=== PATIENT | female | born 1950 | race Caucasian/White ===

== ENCOUNTER 2018-02-13 12:18 | Emergency (ER) | payer MEDICARE ==
[~2018-02-13] VITALS: Ht 170.2 cm; Wt 63.6 kg
[2018-02-13 13:15] LABS: BASOPHILS % (AUTO) 0.3 % (0-1); EOSINOPHILS # (AUTO) 0.1 X10'3 (0-0.9); EOSINOPHILS % (AUTO) 1.5 % (0-6); HEMATOCRIT 24.8 % (35.0-45.0); HEMOGLOBIN 8.3 g/dl (12.0-16.0); LYMPHOCYTES # (AUTO) 1.8 X10'3 (1.1-4.8); LYMPHOCYTES % (AUTO) 37.2 % (21-51); MEAN CORPUSCULAR HEMOGLOBIN 31.8 PG (27.0-31.0); MEAN CORPUSCULAR HGB CONC 33.3 % (33.0-36.5); MEAN CORPUSCULAR VOLUME 95.5 FL (78-98); MEAN PLATELET VOLUME 6.9 FL (7.4-10.4); MONOCYTES # (AUTO) 0.7 X10'3 (0-0.9); NEUTROPHILS # (AUTO) 2.3 X10'3 (1.8-7.7); PLATELET COUNT 137 X10'3 (140-440); RED BLOOD COUNT 2.59 X10'6 (4.20-5.60); RED CELL DISTRIBUTION WIDTH 14.4 % (11.5-14.5); WHITE BLOOD COUNT 4.8 X10'3 (4.5-11.0)
[2018-02-13 13:29] LABS: ALANINE AMINOTRANSFERASE 33 U/L (12-78); ALBUMIN 3.3 G/DL (3.4-5.0); ALBUMIN/GLOBULIN RATIO 1.2 (1.1-1.5); ALKALINE PHOSPHATASE 70 IU/L (46-116); ANION GAP 9 (8-16); ASPARTATE AMINO TRANSFERASE 33 U/L (10-37); BILIRUBIN,TOTAL 0.4 MG/DL (0.1-1.0); BLOOD UREA NITROGEN 27 MG/DL (7-18); BUN/CREATININE RATIO 8.9 (6.6-38.0); CALCIUM 8.2 MG/DL (8.5-10.1); CHLORIDE 106 MMOL/L (99-107); CREATININE 3.05 MG/DL (0.40-0.90); GLUCOSE 98 MG/DL (70-104); SODIUM 140 MMOL/L (135-145); TOTAL CARBON DIOXIDE 25.4 MMOL/L (24-32); TOTAL PROTEIN 6.1 G/DL (6.4-8.2); eGFR 15 ML/MIN
[2018-02-13 13:32] LABS: TROPONIN I < 0.04 NG/ML (0.0-0.05)
[2018-02-13 18:39] VITALS: BP 124/72
[2018-02-13] MEDS ORDERED: acetaminophen 325mg tablet PO ONE (18:45)
[2018-02-13 18:55] VITALS: BP 112/66
[2018-02-13 19:55] VITALS: BP 112/68
[2018-02-13 20:56] VITALS: BP 127/71
== END 2018-02-13 21:28 | disposition home or self-care (01) ==
LOC: ER 12:18
DX: D64.9 Anemia, unspecified (principal); N19 Unspecified kidney failure; G89.29 Other chronic pain; Z98.890 Other specified postprocedural states; Z88.1 Allergy status to other antibiotic agents; Z88.6 Allergy status to analgesic agent; Z88.8 Allergy status to other drugs, medicaments and biological substances
CPT/HCPCS: 36415; 36430; 80053; 84484; 85025; 86885; 86900; 86901; 86920; 99285; P9016

== ENCOUNTER 2018-02-23 08:24 | Day surgery (SDC) | payer MEDICARE ==
[~2018-02-23] VITALS: Ht 170.2 cm; Wt 64.3 kg
[2018-02-23] VITALS (15 sets, daily range): BP systolic 104–146; BP diastolic 50–84
[2018-02-23] MEDS ORDERED: normal saline 1000ml 1,000 ML IV PRN (08:55)
[2018-02-23 09:16] LABS: BASOPHILS % (AUTO) 0.2 % (0-1); EOSINOPHILS # (AUTO) 0.1 X10'3 (0-0.9); EOSINOPHILS % (AUTO) 1.4 % (0-6); LYMPHOCYTES # (AUTO) 1.7 X10'3 (1.1-4.8); LYMPHOCYTES % (AUTO) 31.1 % (21-51); MEAN CORPUSCULAR HEMOGLOBIN 31.5 PG (27.0-31.0); MEAN CORPUSCULAR HGB CONC 33.2 % (33.0-36.5); MEAN CORPUSCULAR VOLUME 94.8 FL (78-98); MEAN PLATELET VOLUME 7.3 FL (7.4-10.4); MONOCYTES # (AUTO) 0.9 X10'3 (0-0.9); MONOCYTES % (AUTO) 16.1 % (2-12); NEUTROPHILS # (AUTO) 2.9 X10'3 (1.8-7.7); NEUTROPHILS % (AUTO) 51.2 % (42-75); PRE OP HEMATOCRIT 35.7 % (35.0-45.0); PRE OP HEMOGLOBIN 11.8 g/dL (12.0-16.0); PRE OP PLATELET COUNT 154 X10'3 (140-440); RED BLOOD COUNT 3.76 X10'6 (4.20-5.60); RED CELL DISTRIBUTION WIDTH 14.9 % (11.5-14.5)
[2018-02-23 09:25] LABS: ALBUMIN 4.1 G/DL (3.4-5.0); ANION GAP 13 (8-16); BLOOD UREA NITROGEN 30 MG/DL (7-18); CALCIUM 9.7 MG/DL (8.5-10.1); CHLORIDE 106 MMOL/L (99-107); CREATININE 3.76 MG/DL (0.40-0.90); GLUCOSE 100 MG/DL (70-104); POTASSIUM 3.9 MMOL/L (3.5-5.1); SODIUM 144 MMOL/L (135-145); TOTAL CARBON DIOXIDE 25.5 MMOL/L (24-32); eGFR 12 ML/MIN
[2018-02-23] MEDS ORDERED: PANT-47 PO (09:29)
[2018-02-23] MEDS ORDERED: LIDOcaine 1% (10mg/ml) 2ml vial ONE (10:38)
[2018-02-23] MEDS ORDERED: midazolam 2 mg/2 ml injection ONE ×2 (10:48→11:10)
[2018-02-23] MEDS ORDERED: fentaNYL/PF 50MCG/1 ML 2ML syringe ONE ×2 (10:48→11:10)
[2018-02-23] MEDS ORDERED: normal saline 1000ml 1,000 ML IV SCH (10:49)
[2018-02-23] MEDS ORDERED: midazolam 2 mg/2 ml injection IV PRN (10:50)
[2018-02-23] MEDS ORDERED: fentaNYL/PF 50MCG/1 ML 2ML syringe IV PRN (10:50)
== END 2018-02-23 13:55 | disposition home or self-care (01) ==
LOC: SSTAY O 08:24
PROVIDERS: ATTEND Radiology Diagnostic Radiology
DX: N18.4 Chronic kidney disease, stage 4 (severe) (principal); D64.9 Anemia, unspecified; Z88.2 Allergy status to sulfonamides; Z88.8 Allergy status to other drugs, medicaments and biological substances; Z96.659 Presence of unspecified artificial knee joint; Z98.890 Other specified postprocedural states
CPT/HCPCS: 36415; 50200; 77012; 80048; 85025; 99152; 99153; J2250; J3010; J3490; J7030

== ENCOUNTER 2019-04-13 14:36 | Emergency (ER) | payer MEDICARE ==
[~2019-04-13] VITALS: Ht 168.9 cm; Wt 68.2 kg
[~2019-04-13 14:36] MED LIST: PANT-47 PO
[2019-04-13 15:06] LABS: CLARITY,URINE CLEAR (Clear); COLOR,URINE STRAW (Yellow); GLUCOSE, URINE NEGATIVE (Neg); KETONES,URINE NEGATIVE (Neg); LEUKOCYTE ESTERASE ,URINE NEGATIVE (Neg); NITRITES, URINE NEGATIVE (Neg); OCCULT BLOOD,URINE SMALL (Neg); PH,URINE 5.5 (4.8-8.0); PROTEIN,URINE NEGATIVE (Neg); UROBILINOGEN,URINE 0.2 E.U/dL (0.2-1.0)
[2019-04-13 15:13] LABS: UA COLLECTION TYPE CLN CATCH MIDSTREAM
[2019-04-13 15:15] LABS: BACTERIA,URINE FEW /HPF (Neg); RBC,URINE 0-2 /HPF (0-2); SQUAMOUS EPITHELIAL CELL,UR FEW /LPF (FEW); WBC,URINE 0-4 /HPF (0-4)
[2019-04-13 16:24] LABS: PARTIAL THROMBOPLASTIN TIME 27 SECONDS (22-32)
[2019-04-13 16:27] LABS: ALANINE AMINOTRANSFERASE 24 U/L (12-78); ALBUMIN 3.9 G/DL (3.4-5.0); ALBUMIN/GLOBULIN RATIO 1.7 (1.1-1.5); ALKALINE PHOSPHATASE 110 IU/L (46-116); ANION GAP 6 (8-16); ASPARTATE AMINO TRANSFERASE 20 U/L (10-37); BILIRUBIN,TOTAL 0.2 MG/DL (0.1-1.0); BLOOD UREA NITROGEN 26 MG/DL (7-18); BUN/CREATININE RATIO 14.9 (6.6-38.0); CALCIUM 8.3 MG/DL (8.5-10.1); CHLORIDE 104 MMOL/L (99-107); CREATININE 1.75 MG/DL (0.40-0.90); GLUCOSE 99 MG/DL (70-104); HEMATOCRIT 31.9 % (35.0-45.0); LYMPHOCYTES # (AUTO) 0.6 X10'3 (1.1-4.8); MAGNESIUM 2.1 MG/DL (1.5-2.4); MEAN CORPUSCULAR HEMOGLOBIN 36.6 PG (27.0-31.0); MEAN CORPUSCULAR HGB CONC 34.4 g/dL (33.0-36.5); MEAN CORPUSCULAR VOLUME 106.4 FL (78-98); MONOCYTES # (AUTO) 0.5 X10'3 (0-0.9); MONOCYTES % (AUTO) 9.6 % (2-12); NEUTROPHILS # (AUTO) 3.6 X10'3 (1.8-7.7); NEUTROPHILS % (AUTO) 76.4 % (42-75); PLATELET COUNT 158 X10'3 (140-440); POTASSIUM 4.4 MMOL/L (3.5-5.1); RED CELL DISTRIBUTION WIDTH 12.9 % (11.5-14.5); SODIUM 136 MMOL/L (135-145); TOTAL CARBON DIOXIDE 26.3 MMOL/L (24-32); TOTAL PROTEIN 6.2 G/DL (6.4-8.2); WHITE BLOOD COUNT 4.8 X10'3 (4.5-11.0); eGFR 29 ML/MIN
[2019-04-13 16:50] VITALS: BP 153/92
== END 2019-04-13 16:53 | disposition home or self-care (01) ==
LOC: ER 14:36
DX: R30.0 Dysuria (principal); G89.29 Other chronic pain; N18.9 Chronic kidney disease, unspecified; Z98.890 Other specified postprocedural states; Z88.1 Allergy status to other antibiotic agents; Z88.8 Allergy status to other drugs, medicaments and biological substances; Z88.6 Allergy status to analgesic agent; Z87.440 Personal history of urinary (tract) infections; Z92.21 Personal history of antineoplastic chemotherapy
CPT/HCPCS: 36415; 71045; 80053; 81001; 83605; 83735; 84145; 85025; 85610; 85730; 87040; 99284

== ENCOUNTER 2020-03-21 11:42 | Emergency (ER) | payer MEDICARE ==
[~2020-03-21] VITALS: Ht 170.2 cm; Wt 65.9 kg
--- NOTE | 2020-03-21 12:28 | NUR ---
Patient given call light and explained to her that until her results for the COVID come back we will keep the door closed. Pt verbalized understanding and has call light in reach.
[2020-03-21 12:43] LABS: BASOPHILS % (AUTO) 0.3 % (0-1); EOSINOPHILS # (AUTO) 0.2 X10'3 (0-0.9); EOSINOPHILS % (AUTO) 1.8 % (0-6); HEMATOCRIT 38.5 % (35.0-45.0); LYMPHOCYTES % (AUTO) 11.3 % (21-51); MEAN CORPUSCULAR HGB CONC 33.7 g/dL (33.0-36.5); MEAN CORPUSCULAR VOLUME 103.8 FL (78-98); MEAN PLATELET VOLUME 8.5 FL (7.4-10.4); MONOCYTES # (AUTO) 0.6 X10'3 (0-0.9); MONOCYTES % (AUTO) 6.8 % (2-12); NEUTROPHILS # (AUTO) 7.1 X10'3 (1.8-7.7); NEUTROPHILS % (AUTO) 79.8 % (42-75); PLATELET COUNT 209 X10'3 (140-440); RED BLOOD COUNT 3.71 X10'6 (4.20-5.60); RED CELL DISTRIBUTION WIDTH 14.2 % (11.5-14.5); WHITE BLOOD COUNT 8.9 X10'3 (4.5-11.0)
[2020-03-21 12:57] LABS: ALANINE AMINOTRANSFERASE 21 U/L (12-78); ALBUMIN 4.1 G/DL (3.4-5.0); ALBUMIN/GLOBULIN RATIO 1.5 (1.1-1.5); ALKALINE PHOSPHATASE 109 IU/L (46-116); ANION GAP 11 (8-16); ASPARTATE AMINO TRANSFERASE 17 U/L (10-37); BILIRUBIN,TOTAL 0.3 MG/DL (0.1-1.0); BLOOD UREA NITROGEN 22 MG/DL (7-18); BUN/CREATININE RATIO 13.5 (6.6-38.0); CALCIUM 8.9 MG/DL (8.5-10.1); CHLORIDE 105 MMOL/L (99-107); CREATININE 1.63 MG/DL (0.40-0.90); GLUCOSE 102 MG/DL (70-104); POTASSIUM 4.8 MMOL/L (3.5-5.1); SODIUM 139 MMOL/L (135-145); TOTAL CARBON DIOXIDE 23.1 MMOL/L (24-32); TOTAL PROTEIN 6.9 G/DL (6.4-8.2); eGFR 31 ML/MIN
[2020-03-21 13:19] VITALS: BP 138/78
[2020-03-21] MEDS ORDERED: ALBU6.7H9 INH (13:38)
[2020-03-21] MEDS ORDERED: AMOX-422 PO (13:38)
== END 2020-03-21 14:31 | disposition home or self-care (01) ==
LOC: ER 11:42
DX: J40 Bronchitis, not specified as acute or chronic (principal); Z20.828 Contact with and (suspected) exposure to other viral communicable diseases; G89.29 Other chronic pain; Z98.890 Other specified postprocedural states; Z86.2 Personal history of diseases of the blood and blood-forming organs and certain disorders involving the immune mechanism; N19 Unspecified kidney failure; Z85.9 Personal history of malignant neoplasm, unspecified; Z88.2 Allergy status to sulfonamides; Z88.8 Allergy status to other drugs, medicaments and biological substances; Z79.2 Long term (current) use of antibiotics; Z79.899 Other long term (current) drug therapy
CPT/HCPCS: 36415; 71045; 80053; 83605; 84145; 85025; 87040; 87635; 93005; 99285; C9803

== ENCOUNTER 2022-01-17 05:49 | Observation (INO) | payer MEDICARE ==
[2022-01-15 14:08] LABS: BASOPHILS % (AUTO) 0.7 % (0-1); EOSINOPHILS # (AUTO) 0.1 X10'3 (0-0.9); EOSINOPHILS % (AUTO) 1.5 % (0-6); LYMPHOCYTES # (AUTO) 1.4 X10'3 (1.1-4.8); MEAN CORPUSCULAR HEMOGLOBIN 35.5 PG (27.0-31.0); MEAN CORPUSCULAR HGB CONC 33.2 g/dL (33.0-36.5); MEAN CORPUSCULAR VOLUME 106.7 FL (78-98); MEAN PLATELET VOLUME 8.5 FL (7.4-10.4); MONOCYTES # (AUTO) 0.4 X10'3 (0-0.9); MONOCYTES % (AUTO) 6.4 % (2-12); NEUTROPHILS # (AUTO) 4.5 X10'3 (1.8-7.7); NEUTROPHILS % (AUTO) 69.4 % (42-75); PRE OP HEMATOCRIT 40.7 % (35.0-45.0); PRE OP HEMOGLOBIN 13.5 g/dL (12.0-16.0); PRE OP PLATELET COUNT 158 X10'3 (140-440); RED BLOOD COUNT 3.81 X10'6 (4.20-5.60); RED CELL DISTRIBUTION WIDTH 15.5 % (11.5-14.5)
[2022-01-15 14:12] LABS: PRE OP PROTIME 10.2 SECONDS (9.0-12.0)
[2022-01-15 14:24] LABS: ALBUMIN/GLOBULIN RATIO 1.5 (1.1-1.5); ALKALINE PHOSPHATASE 96 IU/L (46-116); BLOOD UREA NITROGEN 19 MG/DL (7-18); BUN/CREATININE RATIO 15.4 (6.6-38.0); CALCIUM 8.8 MG/DL (8.5-10.1); CHLORIDE 103 MMOL/L (99-107); CREATININE 1.23 MG/DL (0.40-0.90); PRE OP ALT 19 U/L (30-65); PRE OP ANION GAP 7 (8-16); PRE OP AST 17 U/L (10-37); PRE OP BILIRUB, TOTAL 0.4 MG/DL (0.0-1.0); PRE OP GLUCOSE 96 MG/DL (70-104); PRE OP POTASSIUM 4.2 MMOL/L (3.4-5.1); PRE OP SODIUM 138 MMOL/L (135-145); TOTAL CARBON DIOXIDE 28.3 MMOL/L (24-32); TOTAL PROTEIN 6.7 G/DL (6.4-8.2); eGFR 43 ML/MIN
[~2022-01-17] VITALS: Ht 167.6 cm; Wt 65.6 kg
[2022-01-17] VITALS (18 sets, daily range): BP systolic 113–150; BP diastolic 66–94
[~2022-01-17 05:49] MED LIST changes: +ALBU8.5H17 INH; +ASPI-1094 PO; +CARV-50 PO; +DARA100V IV; +DOCUMENT DATE & TIME OF BETA-BLOCKER PO ONE; +DULO20CA50 PO; +LEVO75TA PO; +MAGN400C PO; +ONDA8TAB13 PO; -PANT-47 PO; +PROC-8 PO; +SODI650T29 PO; +VALA500T PO; +clindamycin-Cleocin 900mg/D5W 50 ML IV ONE; +famotidine 20mg tablet PO ONE; +gentamicin inj 310 MG in normal saline 100ml IV soln 92.25 ML IV ONE; +ivig IV; +ringers solution, lacted 1,000 ML IV SCH
[2022-01-17] MEDS ORDERED: LIDOCAINE 1%/EPI 1:100,000 inj. 10 ML multi-dose vial ONE (06:53)
[2022-01-17] MEDS ORDERED: ceFAZolin 1000mg inj ONE (06:53)
[2022-01-17] MEDS ORDERED: BUPIVAcaine/PF 5 mg/ml 10ml ONE (06:53)
[2022-01-17] MEDS ORDERED: normal saline 500ml IV soln 500 ML IV SCH (06:55)
--- NOTE | 2022-01-17 06:55 | NUR ---
PT PREPARED FOR SURGERY, IV STARTED WITHOUT DIFFICULTY. ANTIBIOTICS GENTAMYCIN STARTED, ORDERS VERIFIED. PTS ABDOMEN WIPED WITH CHLORAHEXIDINE. SURGERY CONSENT VERIFIED. EXTENSIVE HISTORY DOCUMENTED. PT EDUCATED ON USE OF INCENTIVE SPIROMETRY, VERIFIED UNDERSTANDING
[2022-01-17] MEDS ORDERED: fentaNYL /PF 50mcg/ml 5ml ampule ONE (07:18)
[2022-01-17] MEDS ORDERED: dexamethasone sod phosphate 4mg/ml inj. ONE (09:16)
[2022-01-17] MEDS ORDERED: ondansetron/PF 4mg/2ml inj ONE (09:16)
[2022-01-17] MEDS ORDERED: rocuronium 10mg/ml inj IV ONE (09:16)
[2022-01-17] MEDS ORDERED: ePHEDrine 50MG/ML INJ. ONE ×2 (09:16→10:06)
[2022-01-17] MEDS ORDERED: propofol inj 20 ML IV ONE (09:16)
[2022-01-17] MEDS ORDERED: LIDOcaine 2% (20mg/ml) 5ml vial ONE (09:16)
[2022-01-17] MEDS ORDERED: morphine 2 MG/ML inj. syringe IV PRN (09:30)
[2022-01-17] MEDS ORDERED: proCHLORperazine 10 MG/2 ml inj IV PRN ×2 (09:30→10:25)
[2022-01-17] MEDS ORDERED: HYDROmorphone/PF 0.2 MG/ML SYRINGE IV PRN ×2 (09:30)
[2022-01-17] MEDS ORDERED: ringers solution, lacted 1,000 ML IV SCH ×2 (09:30→10:25)
[2022-01-17] MEDS ORDERED: fluoroscein sod 10% (100mg/ml) 5ml vial ONE (09:42)
[2022-01-17] MEDS ORDERED: acetaminophen 1,000mg/100ml IV 100 ML IV ONE (10:00)
[2022-01-17] MEDS ORDERED: glycopyrrolate 0.2mg/ml inj ONE (10:06)
[2022-01-17] MEDS ORDERED: neostigmine methylsulfate 1 MG/ML 10ml vial ONE (10:06)
--- NOTE | 2022-01-17 10:19 | NUR ---
Received from OR via BED , accompanied by Anesthesiologist TATUM and OR NURSE report given by Anesthesiolgist. PT DROWSY BUT RESPONDS TO VERBAL STIMULI. TASHA PAIN AND DISCOMFORT. 20G IN LEFT WRIST. 3 LAP SITES WITH DERMABOND. VAG PAD IN PLACE; CDI. 02 MASK ON 10 LPM SATS AT 100%. SCD'S IN PLACE. TONI PRESENT AND PATENT; BLANCA COLORED URINE. Addendum: 01/17/22 at 1030 by Yudy Borrero RN Amended: Links added.
[2022-01-17] MEDS ORDERED: magnesium hydroxide 30ml (MOM) UD suspension PO PRN (10:25)
[2022-01-17] MEDS ORDERED: mag hydrox/Alum hydrox/simeth 30ml oral suspension PO PRN (10:25)
[2022-01-17] MEDS ORDERED: oxyCODONE/APAP 5-325mg tablet PO PRN (10:25)
[2022-01-17] MEDS ORDERED: diphenhydrAMINE 50 mg/ml inj IV PRN (10:25)
[2022-01-17] MEDS ORDERED: LORazepam 2 mg/ml vial IV PRN (10:25)
[2022-01-17] MEDS ORDERED: temazepam 15mg capsule PO PRN (10:25)
[2022-01-17] MEDS ORDERED: normal saline 500ML IV soln IV PRN (10:25)
[2022-01-17] MEDS ORDERED: naloxone 0.4 mg/ml inj IV PRN (10:25)
--- NOTE | 2022-01-17 11:14 | NUR ---
I have received report from Yudy HALL and had the opportunity to ask questions and await patient arrival to the floor.
--- NOTE | 2022-01-17 11:19 | NUR ---
Report called to receiving nurseClarisa. Transferred via bed. one bag of Belongings sent with pt. 500 ml's of urine emptied from lopez. pt tolerating oral liquids. pt resting comfortably with no complaints. . Special Issues communicated to receiving nurse. Addendum: 01/17/22 at 1128 by Yudy Borrero RN Amended: Links added.
--- NOTE | 2022-01-17 11:30 | NUR ---
Received pt to room 4018, post op vital signs began. VSS, pt resting with and daughter at bedside, no c/o pain or discomfort at the time. will continue to monitor
[2022-01-17] MEDS: ketorolac trometh. 30mg/ml inj. IV PRN ×2 (12:32→19:07)
[2022-01-17] MEDS: simethicone 80mg chew tab PO SCH ×2 (14:09→17:34)
--- NOTE | 2022-01-17 15:19 | NUR ---
LENS INSPECTOR documentation: I have reviewed and agree with all interventions, assessments performed and documented by Delia Dyson LVN .
[2022-01-17] MEDS: normal saline 1000ml 1,000 ML IV SCH ×2 (15:45→23:27)
--- NOTE | 2022-01-17 17:00 | NUR ---
Pt up and ambulating with this nurse. walked approximately 300 ft with a walker, no c/o pain or discomfort while walking, steady gait.
--- NOTE | 2022-01-17 18:15 | NUR ---
Patient in room ORTHO 4018. I have received report from Shahid HALL and had the opportunity to ask questions and assume patient care.
[2022-01-17] MEDS ORDERED: CARV3.122 PO (19:21)
[2022-01-17] MEDS: valacyclovir 500mg tablet PO SCH (20:31)
[2022-01-17] MEDS: docusate sod 100mg capsule PO SCH (20:31)
[2022-01-17] MEDS: carVEDilol 3.125mg tablet PO SCH (20:31)
[2022-01-18] MEDS: ketorolac trometh. 30mg/ml inj. IV PRN ×2 (01:19→08:04)
[2022-01-18 02:00] VITALS: BP 130/75
--- NOTE | 2022-01-18 03:20 | NUR ---
Student Medication Administration: For this medication-pass time frame, all medication were reviewed, dispensed, administered and documented per hospital policy by Monroe Armenta Student nurse.
[2022-01-18 06:00] VITALS: BP 133/84
[2022-01-18 06:44] LABS: BASOPHILS % (AUTO) 0.2 % (0-1); EOSINOPHILS % (AUTO) 0.3 % (0-6); HEMATOCRIT 33.8 % (35.0-45.0); HEMOGLOBIN 11.8 g/dl (12.0-16.0); LYMPHOCYTES # (AUTO) 1.4 X10'3 (1.1-4.8); LYMPHOCYTES % (AUTO) 19.4 % (21-51); MEAN CORPUSCULAR HEMOGLOBIN 36.7 PG (27.0-31.0); MEAN CORPUSCULAR HGB CONC 34.8 g/dL (33.0-36.5); MEAN CORPUSCULAR VOLUME 105.5 FL (78-98); MEAN PLATELET VOLUME 8.3 FL (7.4-10.4); MONOCYTES # (AUTO) 0.6 X10'3 (0-0.9); MONOCYTES % (AUTO) 7.7 % (2-12); NEUTROPHILS # (AUTO) 5.2 X10'3 (1.8-7.7); NEUTROPHILS % (AUTO) 72.4 % (42-75); PLATELET COUNT 126 X10'3 (140-440); RED BLOOD COUNT 3.21 X10'6 (4.20-5.60); RED CELL DISTRIBUTION WIDTH 15.2 % (11.5-14.5); WHITE BLOOD COUNT 7.1 X10'3 (4.5-11.0)
--- NOTE | 2022-01-18 06:45 | NUR ---
Problems reprioritized. Patient report given, questions answered & plan of care reviewed with Latha HALL.
--- NOTE | 2022-01-18 06:51 | NUR ---
Patient in room ORTHO 4018. I have received report from RAFAEL Perez and had the opportunity to ask questions and assume patient care.
[2022-01-18 07:09] LABS: ALBUMIN 2.9 G/DL (3.4-5.0); ANION GAP 8 (8-16); BLOOD UREA NITROGEN 16 MG/DL (7-18); BUN/CREATININE RATIO 13.3 (6.6-38.0); CALCIUM 7.9 MG/DL (8.5-10.1); CHLORIDE 108 MMOL/L (99-107); GLUCOSE 86 MG/DL (70-104); POTASSIUM 3.9 MMOL/L (3.5-5.1); SODIUM 140 MMOL/L (135-145); TOTAL CARBON DIOXIDE 23.9 MMOL/L (24-32); eGFR 44 ML/MIN
[2022-01-18] MEDS ORDERED: sodium bicarbonate 650mg tablet PO SCH (08:00)
[2022-01-18] MEDS ORDERED: levoTHYROXINE 75mcg tablet PO SCH (08:00)
[2022-01-18] MEDS ORDERED: duloxetine 30mg CAPSULE.DR PO SCH (08:00)
[2022-01-18] MEDS ORDERED: magnesium oxide 400mg tablet PO SCH (08:00)
[2022-01-18] MEDS: carVEDilol 3.125mg tablet PO SCH (08:47)
[2022-01-18] MEDS: docusate sod 100mg capsule PO SCH (08:47)
[2022-01-18] MEDS: simethicone 80mg chew tab PO SCH (08:55)
[2022-01-18] MEDS: valacyclovir 500mg tablet PO SCH (08:58)
--- NOTE | 2022-01-18 09:06 | NUR ---
Student Medication Administration: For this medication-pass time frame, all medication were reviewed, dispensed, administered and documented per hospital policy by student nurse Lubna Alatorre with instructor Candace Diaz RN.
[2022-01-18 10:00] VITALS: BP 114/66
--- NOTE | 2022-01-18 12:20 | NUR ---
Patient was discharged at 1200 with instructions and verbalizing understanding of instructions, in wheelchair accompanied by family and nursing staff going home via private vehicle. All lines and tubes including PIV with cannula intact were removed. Education has been provided and all questions were answered. Patient already has a follow up appointment with dr. Haro.
== END 2022-01-18 12:00 | disposition home or self-care (01) ==
LOC: PAS 05:49 → PAS IN 10:30 → ORTHO 4S 11:30
PROVIDERS: ADMIT Obstetrics & Gynecology; ATTEND Obstetrics & Gynecology
DX: N83.291 Other ovarian cyst, right side (principal); C90.00 Multiple myeloma not having achieved remission; E11.9 Type 2 diabetes mellitus without complications; Z87.891 Personal history of nicotine dependence; Z79.899 Other long term (current) drug therapy
CPT/HCPCS: 36415; 52000; 57283; 58552; 80048; 80053; 82948; 84443; 85025; 85610; 85730; 86870; 86885; 86900; 86901; 86902; 86905; 87081; 93005; 96365; 96366; 96375; 96376; C1758; G0378; J0131; J1100; J1170; J1580; J1885; J2704; J2710; J3010; J3490; J7030; J7040; J7120; 88108; 88305; 88307; A4355; A4618; A6250; A7000; J0690; J2405